=== PATIENT | male | born 1995 | race Caucasian/White ===

== ENCOUNTER 2023-01-29 01:25 | Emergency (ER) | payer SELFPAY ==
[~2023-01-29] VITALS: Ht 175.3 cm; Wt 98.0 kg
[2023-01-29 01:29] VITALS: BP 121/73
--- NOTE | 2023-01-29 01:29 | NUR ---
C/O left foot pain x today. Patient reported, missed step, swisted his left foot ~ one hour ETA. PMHx: DENIES
--- NOTE | 2023-01-29 01:32 | NUR ---
Patient taken to bed 12.
--- NOTE | 2023-01-29 01:53 | NUR ---
X-Ray at bedside.
[2023-01-29] MEDS ORDERED: NAPR-54 PO (02:21)
--- NOTE | 2023-01-29 02:25 | NUR ---
nelsy wrap applied to R foot. WNL.
[2023-01-29 02:31] VITALS: BP 121/73
== END 2023-01-29 02:31 | disposition home or self-care (01) ==
LOC: MED 01:25
DX: S92.352A Displaced fracture of fifth metatarsal bone, left foot, initial encounter for closed fracture (principal); Z79.1 Long term (current) use of non-steroidal anti-inflammatories (NSAID); X50.1XXA Overexertion from prolonged static or awkward postures, initial encounter; Y93.89 Activity, other specified; Y92.89 Other specified places as the place of occurrence of the external cause; Y99.8 Other external cause status
CPT/HCPCS: 73610; 73630; 99284; Q0092